=== PATIENT | male | born 1980 | race Caucasian/White ===

== ENCOUNTER 2019-03-31 21:09 | Emergency (ER) | payer MEDICAID, OTHER ==
[~2019-03-31] VITALS: Ht 172.7 cm; Wt 72.6 kg
[2019-04-01 04:20] VITALS: BP 115/75
== END 2019-04-01 04:28 | disposition home or self-care (01) ==
LOC: ER 21:12
DX: L02.413 Cutaneous abscess of right upper limb (principal); L02.214 Cutaneous abscess of groin; F15.10 Other stimulant abuse, uncomplicated